=== PATIENT | female | born 2000 | race African-American/Black ===

== ENCOUNTER 2021-01-24 23:06 | Emergency (ER) | payer SELFPAY ==
[~2021-01-24] VITALS: Ht 170.2 cm; Wt 72.7 kg
[2021-01-25] MEDS ORDERED: ONDANSETRON PF 4 MG/2 ML VIAL. ONE (00:27)
[2021-01-25 00:33] LABS: BASO # 0.1 x10^3/uL (0.0-0.2); BASO % 1 % (0-3); EOS # 0.1 x10^3/uL (0.0-0.7); EOS % 2 % (0-3); HEMATOCRIT 34.7 % (36.0-47.0); HEMOGLOBIN 11.2 g/dL (12.0-15.5); LYMPH # 1.8 x10^3/uL (1.0-4.8); LYMPH % 22 % (24-48); MEAN CORPUSCULAR HEMOGLOBIN 25 pg (25-35); MEAN CORPUSCULAR HGB CONC 32 g/dL (31-37); MEAN CORPUSCULAR VOLUME 76 fL (79-100); MONO # 0.8 x10^3/uL (0.0-1.1); MONO % 10 % (0-9); NEUT # 5.4 x10^3/uL (1.8-7.7); NEUT % 66 % (31-73); PLATELET COUNT 279 x10^3/uL (140-400); RED BLOOD COUNT 4.58 x10^6/uL (3.50-5.40); RED CELL DISTRIBUTION WIDTH 18.5 % (11.5-14.5); WHITE BLOOD COUNT 8.1 x10^3/uL (4.0-11.0)
[2021-01-25 00:42] LABS: BILIRUBIN,URINE NEGATIVE (NEG); CLARITY,URINE CLEAR; COLOR,URINE YELLOW; NITRITE,URINE NEGATIVE (NEG); PROTEIN,URINE NEGATIVE (NEG-TRACE)
[2021-01-25 00:43] LABS: CALCIUM 8.7 mg/dL (8.5-10.1); CREATININE 0.6 mg/dL (0.6-1.0); GFR 151.3; POTASSIUM 3.5 mmol/L (3.5-5.1)
[2021-01-25] MEDS ORDERED: ONDANSETRON PF 4 MG/2 ML VIAL. IVP ONE (00:45)
[2021-01-25] MEDS ORDERED: IV NORMAL SALINE 1000ML BAG 1,000 ML IV ONE (00:45)
[2021-01-25 00:51] LABS: BACTERIA,URINE 0 /HPF (0-FEW); RBC,URINE 0 /HPF (0-2); WBC,URINE RARE /HPF (0-4)
[2021-01-25 00:54] VITALS: BP 114/84
--- NOTE | 2021-01-25 01:28 | ED.ADGEN ---
Past Medical History Past Surgical History: No Surgical History Smoking Status: Never Smoker Alcohol Use: None General Adult EDM: Chief Complaint: VOMITING IN HPI: HPI: Patient is a 20-year-old female at 9 weeks gestation who presents to the emergency room after multiple episodes of vomiting. Patient states she saw an AUDIT CONSULTANT earlier today and had an ultrasound done because she had been having some vaginal bleeding. She states that she had a viable . She does not have any abdominal pain or bleeding since her ultrasound. She states she started having multiple episodes of vomiting over about an hour with a little bi t of pink tinge to the last episode. She is starting to feel better now. She denies any kind of fever. Review of Systems: Review of Systems: Complete ROS is negative unless otherwise documented in HPI Current Medications: Current Medications Medications (Trade) Dose Ordered Sig/Noelle Start Time Stop Time Status Last Admin Dose Admin Famotidine (Pepcid) 20 mg 1X ONCE 01/25/21 01:30 01/25/21 01:31 DC 01/25/21 01:28 20 MG Ondansetron HCl (Zofran) 4 mg STK-MED ONCE 01/25/21 00:27 01/25/21 00:28 DC Sodium Chloride 1,000 ml @ 1,000 mls/hr 1X ONCE 01/25/21 00:45 01/25/21 01:35 DC 01/25/21 00:32 1,000 MLS/HR Allergies: Allergies: Allergies Coded Allergies Type Severity Reaction Last Updated Verified No Known Drug Allergies 01/25/21 No Physical Exam: PE: General: Awake, alert, NAD. Well Nourished, well hydrated. Cooperative HEENT: Atraumatic, EOMI, PERRL, airway patent, moist oral mucosa Neck: Supple, trachea midline Respiratory: CTA bilaterally, normal effort, no wheezing/crackles CV: RRR, no murmur, cap refill <2 GI: Soft, nondistended, nontender, no masses MSK: No obvious deformities Skin: Warm, dry, intact Neuro: A&O x3, speech NL, sensory and motor grossly intact, no focal deficits Psych: Normal affect, normal mood, not suicidal or homicidal Current Patient Data: Labs: Laboratory Tests Test 01/24/21 23:41 01/25/21 00:25 01/25/21 00:30 POC Urine HCG, Qualitative Hcg positive (Negative) White Blood Count 8.1 x10^3/uL (4.0-11.0) Red Blood Count 4.58 x10^6/uL (3.50-5.40) Hemoglobin 11.2 g/dL (12.0-15.5) L Hematocrit 34.7 % (36.0-47.0) L Mean Corpuscular Volume 76 fL (79-100) L Mean Corpuscular Hemoglobin 25 pg (25-35) Mean Corpuscular Hemoglobin Concent 32 g/dL (31-37) Red Cell Distribution Width 18.5 % (11.5-14.5) H Platelet Count 279 x10^3/uL (140-400) Neutrophils (%) (Auto) 66 % (31-73) Lymphocytes (%) (Auto) 22 % (24-48) L Monocytes (%) (Auto) 10 % (0-9) H Eosinophils (%) (Auto) 2 % (0-3) Basophils (%) (Auto) 1 % (0-3) Neutrophils # (Auto) 5.4 x10^3/uL (1.8-7.7) Lymphocytes # (Auto) 1.8 x10^3/uL (1.0-4.8) Monocytes # (Auto) 0.8 x10^3/uL (0.0-1.1) Eosinophils # (Auto) 0.1 x10^3/uL (0.0-0.7) Basophils # (Auto) 0.1 x10^3/uL (0.0-0.2) Sodium Level 139 mmol/L (136-145) Potassium Level 3.5 mmol/L (3.5-5.1) Chloride Level 105 mmol/L (98-107) Carbon Dioxide Level 24 mmol/L (21-32) Anion Gap 10 (6-14) Blood Urea Nitrogen 6 mg/dL (7-20) L Creatinine 0.6 mg/dL (0.6-1.0) Estimated GFR (Cockcroft-Gault) 151.3 Glucose Level 94 mg/dL (70-99) Calcium Level 8.7 mg/dL (8.5-10.1) Urine Collection Type Unknown Urine Color Yellow Urine Clarity Clear Urine pH 7.0 (<5.0-8.0) Urine Specific [place] 1.020 (1.000-1.030) Urine Protein Negative mg/dL (NEG-TRACE) Urine Glucose (UA) Negative mg/dL (NEG) Urine Ketones (Stick) Negative mg/dL (NEG) Urine Blood Negative (NEG) Urine Nitrite Negative (NEG) Urine Bilirubin Negative (NEG) Urine Urobilinogen Dipstick 4.0 mg/dL (0.2 mg/dL) Urine Leukocyte Esterase Negative (NEG) Urine RBC 0 /HPF (0-2) Urine WBC Rare /HPF (0-4) Urine Squamous Epithelial Cells Many /LPF Urine Bacteria 0 /HPF (0-FEW) Urine Mucus Marked /LPF Laboratory Tests 01/25/21 00:25 Laboratory Tests 01/25/21 00:25 Vital Signs: Vital Signs Date Time Temp Pulse Resp B/P (MAP) Pulse Ox O2 Delivery O2 Flow Rate FiO2 01/25/21 00:54 63 18 114/84 (94) 99 Room Air 01/24/21 23:26 98.3 98.3 EKG: EKG: [] Heart Score: C/O Chest Pain: N/A Risk Factors: Risk Factors: DM, Current or recent (<one month) smoker, HTN, HLP, family history of CAD, obesity. Risk Scores: Score 0 - 3: 2.5% MACE over next 6 weeks - Discharge Home Score 4 - 6: 20.3% MACE over next 6 weeks - Admit for Clinical Observation Score 7 - 10: 72.7% MACE over next 6 weeks - Early Invasive Strategies Radiology/Procedures: Radiology/Procedures: [] Course & Med Decision Making: Course & Med Decision Making Pertinent Labs and Imaging studies reviewed. (See chart for details) Patient is 20-year-old female at 9 weeks gestation who presents to the emergency room complaining of vomiting. Patient did have some pink-tinged vomit at the end which is likely due to irritation of the esophagus. Patient does not appear to have a GI bleed. She is very well-appearing. Lab work was done and is stable. Baby was dopplered and has a good heartbeat. Patient will follow up with AUDIT CONSULTANT. Patient's test results and vitals while in the ED were fully reviewed and discussed with the patient. Patient is stable and at this time does not need admission to the hospital. We have discussed strict return precautions and the importance of following up with their Primary Care Physician. Patient stated understanding and was given an opportunity to ask any questions. Patient is in agreement with plan. Dragon Disclaimer: Talia Disclaimer: This electronic medical record was generated, in whole or in part, using a voice recognition dictation system. Departure Departure Impression: Primary Impression: Vomiting affecting Disposition: HOME / SELF CARE / HOMELESS Condition: STABLE Referrals: NO PCP (PCP) Patient Instructions: Hyperemesis Gravidarum WILTON JIMENEZ MD Jan 25, 2021 01:28
[2021-01-25] MEDS ORDERED: FAMOTIDINE 20 MG TABLET. PO ONE (01:30)
== END 2021-01-25 01:35 | disposition home or self-care (01) ==
LOC: ER 23:06
DX: O21.9 Vomiting of pregnancy, unspecified (principal); Z3A.09 9 weeks gestation of pregnancy
CPT/HCPCS: 36415; 80048; 81001; 81025; 85025; 96361; 96374; 99283; J2405; J7030

== ENCOUNTER → 2021-09-15 | Outpatient (CLI) | payer MEDICAID ==
[2021-09-15 15:53] LABS: BASO % 1 % (0-3); EOS # 0.1 x10^3/uL (0.0-0.7); EOS % 2 % (0-3); HEMATOCRIT 38.8 % (36.0-47.0); HEMOGLOBIN 12.6 g/dL (12.0-15.5); LYMPH # 1.8 x10^3/uL (1.0-4.8); LYMPH % 23 % (24-48); MEAN CORPUSCULAR HEMOGLOBIN 26 pg (25-35); MEAN CORPUSCULAR HGB CONC 32 g/dL (31-37); MEAN CORPUSCULAR VOLUME 80 fL (79-100); MONO # 0.7 x10^3/uL (0.0-1.1); MONO % 9 % (0-9); NEUT % 66 % (31-73); PLATELET COUNT 290 x10^3/uL (140-400); RED BLOOD COUNT 4.87 x10^6/uL (3.50-5.40); RED CELL DISTRIBUTION WIDTH 16.6 % (11.5-14.5); WHITE BLOOD COUNT 7.7 x10^3/uL (4.0-11.0)
== END ==
LOC: LAB 15:14
PROVIDERS: ATTEND Registered Nurse
DX: O36.80X0 Pregnancy with inconclusive fetal viability, not applicable or unspecified (principal); Z3A.00 Weeks of gestation of pregnancy not specified
CPT/HCPCS: 36415; 84144; 84702; 85025; 86900; 86901

== ENCOUNTER → 2021-09-21 | Outpatient (CLI) | payer MEDICAID ==
[~2021-09-21] MED LIST: OXYC1TAB15 PO
--- NOTE | 2021-09-22 08:51 | RAD ---
US OB <14 WKS History: AMENORRHEA, W/ INCONCLUSIVE VIABILITY Comparison: None. Technique: Sonographic examination of the pelvis was performed with transabdominal and transvaginal t echnique. Findings: The uterus measures 10.2 x 5.5 x 6.9 cm. The cervix is closed and measures 2.9 cm length. The uterus contains a single gestational sac with irregular shape. The mean sac diameter is 3.28 cm. A small yolk sac is identified. No pole is seen. There is no evidence of perigestational hemorrhage. The right ovary is normal in size and echogenicity, measuring 2.7 x 2.8 x 3.1 cm. The left ovary is normal in size and echogenicity, measuring 2.2 x 1.6 x 2.4 cm. There is no evidence of adnexal mass or free fluid. Impression: Irregular intrauterine gestational sac measuring mean sac 32.8 mm without embryo is consistent with f sky early . (Criteria: Mean sac diameter greater than 25 mm and an embryo transvaginal sca n.) Electronically signed by: Jed Santana MD (09/22/2021 8:49 AM) [id number]
== END ==
LOC: US 14:59
PROVIDERS: ATTEND Registered Nurse
DX: O36.80X0 Pregnancy with inconclusive fetal viability, not applicable or unspecified (principal); N92.1 Excessive and frequent menstruation with irregular cycle
CPT/HCPCS: 76801

== ENCOUNTER 2021-09-26 14:31 | Day surgery (SDC) | payer MEDICAID ==
[~2021-09-26] VITALS: Ht 165.1 cm; Wt 68.0 kg
[2021-09-26 15:27] LABS: BASO # 0.1 x10^3/uL (0.0-0.2); BASO % 1 % (0-3); EOS % 0 % (0-3); HEMATOCRIT 38.2 % (36.0-47.0); HEMOGLOBIN 12.4 g/dL (12.0-15.5); LYMPH # 1.6 x10^3/uL (1.0-4.8); LYMPH % 12 % (24-48); MEAN CORPUSCULAR HEMOGLOBIN 26 pg (25-35); MEAN CORPUSCULAR HGB CONC 33 g/dL (31-37); MEAN CORPUSCULAR VOLUME 79 fL (79-100); MONO # 0.6 x10^3/uL (0.0-1.1); MONO % 5 % (0-9); NEUT # 11.1 x10^3/uL (1.8-7.7); NEUT % 83 % (31-73); PLATELET COUNT 281 x10^3/uL (140-400); RED BLOOD COUNT 4.82 x10^6/uL (3.50-5.40); RED CELL DISTRIBUTION WIDTH 16.5 % (11.5-14.5); WHITE BLOOD COUNT 13.5 x10^3/uL (4.0-11.0)
[2021-09-26] MEDS ORDERED: IV NORMAL SALINE 1000ML BAG 1,000 ML IV ONE ×2 (15:30→16:00)
[2021-09-26] MEDS ORDERED: ONDANSETRON PF 4 MG/2 ML VIAL. IVP ONE (15:30)
[2021-09-26] MEDS ORDERED: MORPHINE SULFATE 4 MG/ML INJ. IVP ONE ×2 (15:30→16:45)
--- NOTE | 2021-09-26 15:46 | PHYS DOC ---
Past Medical History Past Surgical History: No Surgical History Smoking Status: Never Smoker Alcohol Use: None General Adult EDM: Chief Complaint: VAGINAL BLEEDING HPI: HPI: Patient is a 21 year old female 4 para 2 ,1 Miscarriage last year currently 6 weeks presenting to the ED today with vaginal bleeding in , symptoms began yesterday. Patient is also complaining of moderate abdominal cramping. She states she was seen by her PURCHASE REQUEST EDITOR last week, they did an outpatient ultrasound 09/21/2021 and she was told she has an nonviable . She was offered a D&C to terminate the or medications to terminate the but she declined wanting to let the pass on its own. She states today she started bleeding heavy, she states she used 4 pads in the last 2 hours, and passed tissue and pain was unbearable. Review of Systems: Review of Systems: Constitutional: Denies fever or chills. [] Eyes: Denies change in visual acuity. [] HENT: Denies nasal congestion or sore throat. [] Respiratory: Denies cough or shortness of breath. [] Cardiovascular: Denies chest pain or edema. [] GI: Reports vaginal bleeding in , lower abdominal pain, denies nausea, vomiting, bloody stools or diarrhea. [] : Denies dysuria. [] Musculoskeletal: Denies back pain or joint pain. [] Integument: Denies rash. [] Neurologic: Denies headache, focal weakness or sensory changes. [] Psychiatric: Denies depression or anxiety. [] Heart Score: C/O Chest Pain: N/A Risk Factors: Risk Factors: DM, Current or recent (<one month) smoker, HTN, HLP, family his tory of CAD, obesity. Risk Scores: Score 0 - 3: 2.5% MACE over next 6 weeks - Discharge Home Score 4 - 6: 20.3% MACE over next 6 weeks - Admit for Clinical Observation Score 7 - 10: 72.7% MACE over next 6 weeks - Early Invasive Strategies Current Medications: Current Medications Medications (Trade) Dose Ordered Sig/Noelle Start Time Stop Time Status Last Admin Dose Admin Morphine Sulfate (Morphine Sulfate) 4 mg 1X ONCE 09/26/21 15:30 09/26/21 15:31 DC Ondansetron HCl (Zofran) 4 mg 1X ONCE 09/26/21 15:30 09/26/21 15:31 DC Sodium Chloride 1,000 ml @ 1,000 mls/hr 1X ONCE 09/26/21 15:30 09/26/21 16:29 Allergies: Allergies: Allergies Coded Allergies Type Severity Reaction Last Updated Verified No Known Drug Allergies 09/26/21 No Physical Exam: PE: Constitutional: Well developed, well nourished, no acute distress, non-toxic appearance. [] HENT: Normocephalic, atraumatic, bilateral external ears normal, oropharynx moist, no oral exudates, nose normal. [] Eyes: PERRLA, EOMI, conjunctiva normal, no discharge. [] Neck: Normal range of motion, no tenderness, supple, no stridor. [] Cardiovascular:Heart rate regular rhythm, no murmur [] Lungs & Thorax: Bilateral breath sounds clear to auscultation [] Abdomen: Bowel sounds normal, soft, no tenderness, no masses, no pulsatile masses. [] Pelvic exam External vaginal region is covered with moderate amount of blood, blood clots, tissue. Speculum was placed in the vagina, more tissue was coming out as well as blood. I tried massaging the pelvic region and more tissue and blood was c oming out. Patient was in a lot of pain. Procedure aborted. Will consult PURCHASE REQUEST EDITOR Skin: Warm, dry, no erythema, no rash. [] Back: No tenderness, no CVA tenderness. [] Extremities: No tenderness, no cyanosis, no clubbing, ROM intact, no edema. [] Neurologic: Alert and oriented X 3, normal motor function, normal sensory function, no focal deficits noted. [] Psychologic: Affect normal, judgement normal, mood normal. [] Current Patient Data: Labs: Laboratory Tests Test 09/26/21 15:00 White Blood Count 13.5 x10^3/uL (4.0-11.0) H Red Blood Count 4.82 x10^6/uL (3.50-5.40) Hemoglobin 12.4 g/dL (12.0-15.5) Hematocrit 38.2 % (36.0-47.0) Mean Corpuscular Volume 79 fL (79-100) Mean Corpuscular Hemoglobin 26 pg (25-35) Mean Corpuscular Hemoglobin Concent 33 g/dL (31-37) Red Cell Distribution Width 16.5 % (11.5-14.5) H Platelet Count 281 x10^3/uL (140-400) Neutrophils (%) (Auto) 83 % (31-73) H Lymphocytes (%) (Auto) 12 % (24-48) L Monocytes (%) (Auto) 5 % (0-9) Eosinophils (%) (Auto) 0 % (0-3) Basophils (%) (Auto) 1 % (0-3) Neutrophils # (Auto) 11.1 x10^3/uL (1.8-7.7) H Lymphocytes # (Auto) 1.6 x10^3/uL (1.0-4.8) Monocytes # (Auto) 0.6 x10^3/uL (0.0-1.1) Eosinophils # (Auto) 0.0 x10^3/uL (0.0-0.7) Basophils # (Auto) 0.1 x10^3/uL (0.0-0.2) Laboratory Tests 09/26/21 15:00 Vital Signs: Vital Signs Date Time Temp Pulse Resp B/P (MAP) Pulse Ox O2 Delivery O2 Flow Rate FiO2 09/26/21 14:38 98.4 97 24 125/67 (86) 99 Room Air 98.4 EKG: EKG: [] Radiology/Procedures: Radiology/Procedures: [] Course & Med Decision Making: Course & Med Decision Making Pertinent Labs and Imaging studies reviewed. (See chart for details) This a 21-year-old female patient presented to the ED today with vaginal bleeding in , symptoms began yesterday and got worse today. She was diagnosed with a nonviable fetus on September 21, 2021. She arrived in the ED passing tissue and blood. I tried to massage her pelvis region and remove some of the blood and tissue, the amount coming out was more than what we could handle in the ED. She was also in a lot of pain. I consulted with Dr. Bach who will take patient for D&C Blood group O+ Talia Disclaimer: Talia Disclaimer: This electronic medical record was generated, in whole or in part, using a voice recognition dictation system. Departure Departure Impression: Primary Impression: Miscarriage Disposition: ADMITTED INPATIENT Condition: STABLE Referrals: NO PCP (PCP) OLYA HAYES SITE PLANNER Sep 26, 2021 15:46
[2021-09-26] MEDS ORDERED: MORPHINE SULFATE 4 MG/ML INJ. IVP PRN (16:00)
[2021-09-26] MEDS ORDERED: ONDANSETRON PF 4 MG/2 ML VIAL. IVP PRN (16:00)
--- NOTE | 2021-09-26 16:48 | PDOC1 ---
APPRAISER H&P Date of Admission: Date of Admission: History of Present Illness: 21y with LMP of 07/03/21 who presented to the ER with heavy VB. The pt states that she thought that she may have had a SAB last wk. This was based on the u/s performed on 09/21/21 revealing an irregular intrauterine gestational sac consistent with failed early . She was given the options of expectant, medical, and surgical management by her provider. The pt had a D&C last February and was hoping to avoid surgery. Around that time the pt had some bleeding but nothing heavy. Since the pt has had no bleeding until yesterday when she began to spot. This am she thought her period was coming on. When got in the shower the bleeding became heavier. She tried to lay down for 30 minutes but woke up in a pool of blood. PMH: Asthma PSH: D&C Meds: None All: NKDA OBHx: TSVD x 2, SAB Fish Inspector: LMP 07/03/21 Menarche 12yo / regular SH: no tob, rare EtOH FH: noncontributory Medications: Meds: Current Medications Medications (Trade) Dose Ordered Sig/Noelle Route PRN Reason Start Time Stop Time Status Last Admin Dose Admin Sodium Chloride 1,000 ml @ 1,000 mls/hr 1X ONCE IV 09/26/21 15:30 09/26/21 16:29 DC 09/26/21 15:44 Ondansetron HCl (Zofran) 4 mg 1X ONCE IVP 09/26/21 15:30 09/26/21 15:31 DC 09/26/21 15:44 Morphine Sulfate (Morphine Sulfate) 4 mg 1X ONCE IVP 09/26/21 15:30 09/26/21 15:31 DC 09/26/21 15:45 Allergies: Coded Allergies: No Known Drug Allergies (Unverified , 09/26/21) Physical Exam: Vital Signs: Vital Signs Date Time Temp Pulse Resp B/P (MAP) Pulse Ox O2 Delivery O2 Flow Rate FiO2 09/26/21 15:53 75 26 117/67 (84) 100 Room Air 09/26/21 14:38 98.4 98.4 PE: GENERAL: No apparent distress. Alert and oriented. HEENT: Head normocephalic, atraumatic. NECK: Supple LUNGS: Clear to auscultation. HEART: RRR, S1, S2 present, pulses intact ABDOMEN: Soft, positive bowel sounds. EXTREMITIES: No cyanosis or edema. NEUROLOGIC: Normal speech, normal tone PSYCHIATRIC: Normal affect, normal mood. SKIN: No ulceration. Labs: Laboratory Tests Test 09/26/21 15:00 09/26/21 15:32 White Blood Count 13.5 x10^3/uL (4.0-11.0) H Red Blood Count 4.82 x10^6/uL (3.50-5.40) Hemoglobin 12.4 g/dL (12.0-15.5) Hematocrit 38.2 % (36.0-47.0) Mean Corpuscular Volume 79 fL (79-100) Mean Corpuscular Hemoglobin 26 pg (25-35) Mean Corpuscular Hemoglobin Concent 33 g/dL (31-37) Red Cell Distribution Width 16.5 % (11.5-14.5) H Platelet Count 281 x10^3/uL (140-400) Neutrophils (%) (Auto) 83 % (31-73) H Lymphocytes (%) (Auto) 12 % (24-48) L Monocytes (%) (Auto) 5 % (0-9) Eosinophils (%) (Auto) 0 % (0-3) Basophils (%) (Auto) 1 % (0-3) Neutrophils # (Auto) 11.1 x10^3/uL (1.8-7.7) H Lymphocytes # (Auto) 1.6 x10^3/uL (1.0-4.8) Monocytes # (Auto) 0.6 x10^3/uL (0.0-1.1) Eosinophils # (Auto) 0.0 x10^3/uL (0.0-0.7) Basophils # (Auto) 0.1 x10^3/uL (0.0-0.2) Maternal Serum HCG Beta Subunit 4936 mIU/mL (0-5) H SARS-CoV-2 Antigen (Rapid) Negative (NEGATIVE) Laboratory Tests 09/26/21 15:00 Laboratory Tests 09/26/21 15:00 Assessment & Plan: A/P 21y with LMP of 07/03/21 with VB 1.) SAB previous with irregular gestational sac, pt desires definitive tx due to the increase bleeding 2.) VB Hgb 12.4 when first arrived 3.) Asthma SOFIA VALERIO MD Sep 26, 2021 16:48
[2021-09-26] MEDS ORDERED: fentaNYL PF VIAL 100 MCG/2 ML VIAL ONE ×4 (17:40→19:46)
[2021-09-26] MEDS ORDERED: MORPHINE SULFATE 2 MG/ML INJ. IVP PRN (17:45)
[2021-09-26] MEDS ORDERED: IV RINGERS,LACTATED 1000ML 1,000 ML IV SCH (17:45)
[2021-09-26] MEDS ORDERED: fentaNYL PF VIAL 100 MCG/2 ML VIAL IVP PRN ×2 (17:45)
[2021-09-26] MEDS ORDERED: PROCHLORPERAZINE 10 MG/2 ML VIAL. IVP PRN (17:45)
[2021-09-26] MEDS ORDERED: HYDROmorphone 2 MG/ML INJ. IVP PRN (17:45)
[2021-09-26] MEDS ORDERED: DOXYCYCLINE HYCLATE IV ONE (18:00)
[2021-09-26] MEDS ORDERED: DEXTROSE 5% IV ONE (18:00)
[2021-09-26] MEDS ORDERED: DEXAMETHASONE SOD PHOS 4 MG/ML VIAL ONE (18:15)
[2021-09-26] MEDS ORDERED: ONDANSETRON PF 4 MG/2 ML VIAL. ONE (18:15)
[2021-09-26] MEDS ORDERED: LIDOCAINE 2% PF 5 ML VIAL. ONE (18:15)
[2021-09-26] MEDS ORDERED: PROPOFOL 10 MG/ML (20ML) VIAL. IV ONE (18:15)
[2021-09-26] MEDS ORDERED: KETOROLAC 30 MG/ML VIAL. ONE (18:16)
[2021-09-26] MEDS ORDERED: MIDAZOLAM HCL/PF 2 MG/2 ML VIAL. ONE (18:17)
[2021-09-26] MEDS ORDERED: GLYCOPYRROLATE 1 MG/5 ML VIAL. ONE (18:44)
[2021-09-26] MEDS ORDERED: OXYC1TAB15 PO (19:02)
[2021-09-26] MEDS ORDERED: DOCU-109 PO (19:02)
[2021-09-26] MEDS ORDERED: IBUP-1060 PO (19:02)
--- NOTE | 2021-09-26 19:07 | PDOC4 ---
OPERATIVE NOTE: PreOp Dx: 1.) Incomplete SAB, 2.) VB, 3.) Asthma PostOp Dx: same Procedure: Suction D&C Surgeon: Cory Valerio Anesthesia: GETA EBL: 20 cc Fluids: 400 cc Findings: POC Complications: None Pathology: POC SOFIA VALERIO MD Sep 26, 2021 19:07
--- NOTE | 2021-09-26 19:40 | OP ---
DATE OF SURGERY: 09/26/2021 PREOPERATIVE DIAGNOSES: 1. Incomplete SAB. 2. Vaginal bleeding. 3. Asthma. POSTOPERATIVE DIAGNOSES: 1. Incomplete SAB. 2. Vaginal bleeding. 3. Asthma. PROCEDURE: Suction D and C. SURGEON: Celestine Bach MD ANESTHESIA: LMA. ESTIMATED BLOOD LOSS: 20 mL FLUIDS: 400 mL FINDINGS: Products of conception. COMPLICATIONS: None. PATHOLOGY: Products of conception. DESCRIPTION OF PROCEDURE: The patient was taken to the operating room where LMA was placed without difficulty. The patient was prepped and draped in normal sterile fashion. A speculum was placed in the patient's vagina to visualize the cervix. Anterior lip of the cervix was then grasped with a single tooth tenaculum. Uterus was sufficiently dilated to allow for 11 mm curved curette to be placed. At that point, the curette was advanced to the fundus and suction was activated. The curette was rotated until all products of conception were cleared. This occurred with a few passes. At that point, sharp curetting was performed until gritty texture was felt in all 4 quadrants. Additional pass of the suction curette was performed with minimal blood or tissue returning. At that point, the procedure was terminated. Tenaculum was removed with minimal bleeding at the tenaculum site. Good hemostasis was noted. At that point, the patient was taken to recovery room in stable condition. A 200 mg of doxycycline were given prior to the procedure. ANDRES DR: Vaibhav TID: [id number]
[2021-09-26 20:00] VITALS: BP 136/87
[2021-09-26] MEDS ORDERED: oxyCODONE/APAP 5/325 1 TAB TABLET PO ONE (20:00)
--- NOTE | 2021-09-28 17:07 | PATHOLOGY ---
[facility] Accession Number: [id number] . 01 Material submitted: . product of conception - PRODUCTS OF CONCEPTION FROM D AND C . 01 Clinical history: . MISCARRIAGE D AND C W/ SUCTION . 02 Diagnosis: Uterine contents, suction D and C: - Products of conception, comprised of a few immature chorionic villi and segments of decidual tissue and hypersecretory endometrium showing focal hemorrhage, necrosis, and acute inflammation. (JPM/db; 09/28/2021) LBQ 09/28/2021 1428 Local . 02 Electronically signed: . Jose Raul Jc MD, Pathologist NPI- [id number] . 01 Gross description: . The specimen is received in formalin, labeled "Ra Benally, products of conception". Received is a large amount of blood coagulum admixed with possible ulrich-lundy tissue measuring 9.0 x 5.2 x 2.8 cm in aggregate dimensions. or embryonic tissue is not grossly identified. Vesicular structures are absent. The specimen is submitted representatively in cassettes A1 through A3. (CAA; 09/27/2021) QAC/QAC 09/27/2021 1518 Local . 02 Pathologist provided ICD-10: O03.9 . 02 CPT . 058741 Specimen Comment: A courtesy copy of this report has been sent to [phone] Specimen Comment: [id number] Specimen Comment: Report sent to / DR COLE Specimen Comment: A duplicate report has been generated due to demographic updates. Performed at: [address], [place], [place] [id number] MD Hussain Gavin MD Phone: [phone] Performed at: 02 [facility] [address] [place], [place] [id number] MD Jose Raul Jc MD Phone: [phone]
--- NOTE | 2021-09-28 17:07 | PATHOLOGY ---
[facility] Accession Number: [id number] . 01 Material submitted: . product of conception - PRODUCTS OF CONCEPTION . 01 Clinical history: . SPONTANEOUS PASSED IN ER . 02 Diagnosis: Tissue passed in emergency room: - Products of conception, comprised of gestational sac, focally necrotic and degenerating immature chorionic villi with intervillous hemorrhage and fibrin deposition, and segments of decidual tissue showing focal necrosis and acute inflammation. . (JPM:mml; 09/28/2021) [facility] 09/28/2021 1615 Local . 02 Electronically signed: . Jose Raul Jc MD, Pathologist NPI- [id number] . 01 Gross description: . The specimen is received in formalin, labeled "Ra Ramirez, products of conception". Received is an intact gestational sac with adherent blood coagulum measuring 7.1 x 3.8 x 2.9 cm in greatest dimensions. Opening the gestational sac reveals blue-ulrich, smooth, glistening surfaces. or embryonic tissue is not grossly identified. The specimen is submitted representatively in cassettes A1 through A3. (CAA; 09/27/2021) QAC/QAC 09/27/2021 1515 Local . 02 Pathologist provided ICD-10: O03.9 . 02 CPT . 671498 Specimen Comment: A courtesy copy of this report has been sent to [phone] Specimen Comment: Report sent to Specimen Comment: A duplicate report has been generated due to demographic updates. Performed at: 01 [facility] [address], [place], [place] [id number] MD Hussain Gavin MD Phone: [phone] Performed at: 02 [facility] [address] [place], [place] [id number] MD Jose Raul Jc MD Phone: [phone]
== END 2021-09-26 19:01 | disposition home or self-care (01) ==
LOC: ER 14:31 → SURG 17:36
PROVIDERS: ATTEND Obstetrics & Gynecology
DX: O03.4 Incomplete spontaneous abortion without complication (principal); N93.9 Abnormal uterine and vaginal bleeding, unspecified; J45.909 Unspecified asthma, uncomplicated; Z79.899 Other long term (current) drug therapy; Z3A.01 Less than 8 weeks gestation of pregnancy; Z98.890 Other specified postprocedural states; Z88.0 Allergy status to penicillin; Z20.822 Contact with and (suspected) exposure to COVID-19
CPT/HCPCS: 36415; 59812; 84702; 85025; 87426; 88305; A4930; A6257; C9803; J1100; J1885; J2250; J2270; J2405; J2704; J3010; J3490; J7030; J7060; J7120; U0003; A4322